=== PATIENT | male | born 2005 | race Caucasian/White ===

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

== ENCOUNTER 2024-02-29 09:47 | Emergency (ER) | payer BC, SELFPAY ==
[2024-02-29 09:53] VITALS: BP 170/78; PULSE 88; RESP 18; TEMP 36.6; O2SAT 98
[2024-02-29] MEDS: Lidocaine/Epinephri/Tetracaine Topical Gel 3 ML (10:10)
--- NOTE | 2024-02-29 10:25 | DI.RAD_ITS ---
Exam(s) XR FINGER LT MIDDLE EXAM: XR FINGER LT MIDDLE CLINICAL HISTORY: hit/cut on splitter at DIP, can't extend. eval fx. TECHNIQUE: 2D digital imaging was performed. Three views. COMPARISON: None. FINDINGS: BONES: No acute fracture is present. No bony destructive lesion is seen. JOINTS: No dislocation present.Flexion at the distal interphalangeal joint could indicate tendon inju ry. SOFT TISSUE: Significant soft tissue injury at the level of the middle phalanx. IMPRESSION: No evidence of acute fracture. Flexion at the DIP joint line could indicate tendon injury. DATA REPOSITORY: RADIATION DOSE DELIVERED:
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
[2024-02-29] MEDS: Chlorhexidine 4% 120 ML BTL (11:28)
== END 2024-02-29 11:29 | disposition home or self-care (01) ==
PROVIDERS: Emergency Provider Student in an Organized Health Care Education/Training Program
DX: S61.313A Laceration without foreign body of left middle finger with damage to nail, initial encounter (principal); W31.89XA Contact with other specified machinery, initial encounter
CPT/HCPCS: 29130; 76882; 99284; 73140; 99283